=== PATIENT | female | born 1955 | race Caucasian/White ===

== ENCOUNTER → 2020-08-08 13:54 | Outpatient (CLI) | payer MEDICARE, OTHER, SELFPAY ==
--- NOTE | ~2020-08-08 | MM_ITS ---
EXAMINATION: MM screening [place] BI w ana laura HISTORY: Screening mammogram TECHNIQUE: Craniocaudal and mediolateral oblique 3-D tomosynthesis images were obtained and synthetic 2-D images were generated. CAD analysis was submitted and interpreted. COMPARISON: 07/31/2019 diagnostic right digital mammogram 07/17/2019, 07/09/2018, 07/08/2017 bilateral digital screening mammogram examinations BREAST PARENCHYMAL COMPOSITION: There are scattered areas of fibroglandular density. FINDINGS: There is no evidence of suspicious mass, calcification, or architectural distortion to sugg est malignancy in either breast. There has been no suspicious interval change. IMPRESSION: 1. No mammographic evidence of malignancy. 2. Recommend routine screening mammography in one year. BI-RADS Category 1: Negative Reviewed, dictated and finalized at location A. 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
== END ==
PROVIDERS: PCP Family Medicine; Visit Provider Nurse Practitioner
DX: Z12.31 Encounter for screening mammogram for malignant neoplasm of breast (principal)
CPT/HCPCS: 77063; 77067

== ENCOUNTER → 2020-12-14 09:32 | Outpatient (CLI) | payer MEDICARE, SELFPAY ==
--- NOTE | ~2020-12-14 | MR_ITS ---
EXAMINATION: MR lumbar spine wo [facility] EXAM DATE: 12/14/2020 10:24 INDICATION: Low back pain, left leg pain. TECHNIQUE: Multi-sequential, multiplanar MR images of the lumbar spine were obtained without contrast . Sagittal T1, T2, T2 fat saturation images. Axial T2 weighted images. Correlation was made with lumbar x-ray 07/03/2019. FINDINGS: Transitional lumbosacral segment designated L5 with rudimentary L5-S1 disc. The conus medul dayron terminates at the T12-L1 level and has normal signal intensity and morphology. There is 8mm an terolisthesis L4 on L5 without spondylolysis suspected, and there is moderate to severe disc disease at this level. Moderate disc disease at L3-4 with 3 mm retrolisthesis. L2-3 has mild to moderate disc disease with 2 mm retrolisthesis. There are no suspicious marrow signal abnormalities. Mild aneurysm al dilation of the lower abdominal aorta up to 2.8 cm. Level by level evaluation: T11-12: Disc does not extend beyond the endplate margin. Facet arthropathy: Mild. Neural foraminal stenosis: No stenosis. Central canal stenosis: No stenosis. T12-L1: Disc does not extend beyond the endplate margin. Facet arthropathy: Mild. Neural foraminal stenosis: No stenosis. Central canal stenosis: No stenosis. L1-L2: There is a mild diffuse disc bulge. Facet arthropathy: Mild to moderate. Neural foraminal stenosis: Mild left. Central canal stenosis: No stenosis. L2-L3: There is a mild to moderate diffuse disc bulge. Facet arthropathy: Mild to moderate. Neural foraminal stenosis: Mild to moderate right, mild left. Central canal stenosis: Mild. L3-L4: There is a mild to moderate diffuse disc bulge. Facet arthropathy: Moderate. Neural foraminal stenosis: Moderate right, mild to moderate left. Central canal stenosis: Mild. L4-L5: There is a moderate diffuse disc bulge. Facet arthropathy: Severe . Ligamentum flavum enlargement. Neural foraminal stenosis: Moderate bilateral. Central canal stenosis: Severe. L5-S1: Rudimentary disc. Facet arthropathy: None. Neural foraminal stenosis: No stenosis. Central canal stenosis: No stenosis. IMPRESSION: 1. Transitional lumbosacral segment designated L5. 2. Grade 2 anterolisthesis L4 on L5 with severe central canal stenosis, moderate neural foraminal st enosis. 3. Less spondylosis other levels. 4. Incidental mildly aneurysmal infrarenal abdominal aorta. Reviewed, dictated and finalized at location A. IMPRESSION: 1. Transitional lumbosacral segment designated L5. 2. Grade 2 anterolisthesis L4 on L5 with severe central canal stenosis, modera te neural foraminal stenosis. 3. Less spondylosis other levels. 4. Incidental mildly aneurysmal infrarenal abdominal aorta.
== END ==
PROVIDERS: Visit Provider Nurse Practitioner Family
DX: M47.27 Other spondylosis with radiculopathy, lumbosacral region (principal); M48.07 Spinal stenosis, lumbosacral region; I71.4 Abdominal aortic aneurysm, without rupture
CPT/HCPCS: 72148

== ENCOUNTER 2021-07-24 07:58 | Outpatient (CLI) | payer MEDICARE, SELFPAY ==
--- NOTE | ~2021-07-24 | US_ITS ---
EXAMINATION: US aorta DATE: 07/24/2021 08:33 INDICATION: Abdominal aortic aneurysm without rupture. TECHNIQUE: Grayscale, color Doppler, and pulsed Doppler images of the aorta and common iliac arteries were obtained. COMPARISON: Lumbar spine MRI 12/14/2020 FINDINGS: The aorta measures up to 2.8 cm in diameter. There is atherosclerosis of the aorta. The right common iliac artery measures 1.2 cm. The left common iliac artery measures 1.5 cm. IMPRESSION: 1. No abdominal aortic aneurysm. Reviewed, dictated and finalized at location A. 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
== END 2021-07-24 07:59 | disposition home or self-care (01) ==
PROVIDERS: Visit Provider Internal Medicine Cardiovascular Disease
DX: I71.4 Abdominal aortic aneurysm, without rupture (principal)
CPT/HCPCS: 76775

== ENCOUNTER → 2021-09-18 10:50 | Outpatient (CLI) | payer MEDICARE, SELFPAY ==
--- NOTE | ~2021-09-18 | MM_ITS ---
EXAMINATION: MM screening [place] BI w ana laura HISTORY: Screening TECHNIQUE: Craniocaudal and mediolateral oblique 3-D tomosynthesis images were obtained and synthetic 2-D images were generated. CAD analysis was submitted and interpreted. COMPARISON: Comparison to multiple prior studies sequentially, with oldest reviewed study dated 06/10. BREAST PARENCHYMAL COMPOSITION: There are scattered areas of fibroglandular density. FINDINGS: There is no evidence of suspicious mass, calcification, or architectural distortion to sugg est malignancy in either breast. There has been no suspicious interval change. IMPRESSION: 1. No mammographic evidence of malignancy. 2. Recommend routine screening mammography in one year. BI-RADS Category 1: Negative Reviewed, dictated and finalized at location A. [employer]
== END ==
PROVIDERS: PCP Family Medicine; Visit Provider Nurse Practitioner
DX: Z12.31 Encounter for screening mammogram for malignant neoplasm of breast (principal)
CPT/HCPCS: 77063; 77067

== ENCOUNTER 2022-01-15 01:00 | Day surgery (SDC) | payer MEDICARE, SELFPAY ==
[2021-12-29 09:24] VITALS: BMI 26.2
[2022-01-15 10:58] VITALS: BP 125/84; PULSE 77; RESP 18; TEMP 36.4; O2SAT 100; BMI 26.2
[2022-01-15] MEDS: LACTATED RINGERS 1,000 ML 150 ML IV CONT (11:11)
--- NOTE | 2022-01-15 11:32 | WPDANESEPPF ---
Anes - Initial Pre Proc Eval Procedure: Operation Date: 01/15/22 11:30 Proposed Procedures p Screening Colonoscopy - Cesar Hogue MD Date/Time: 01/15/22 11:32 Surgeon: Cesar Hogue MD Pre Op Diagnosis: family hx of colon ca Patient Data Age: 66 Gender: F Height: 1.6 m Weight: 67.3 kg Last Vital Signs Temp 97.5 F L 01/15/22 10:58 Pulse 77 01/15/22 10:58 Resp 18 01/15/22 10:58 BP 125/84 01/15/22 10:58 Pulse Ox 100 01/15/22 10:58 Allergies Allergy/AdvReac Type Severity Reaction Status Date / Time No Known Drug Allergies Allergy Other Verified 12/29/21 09:30 Home Medications Medication Instructions Recorded Confirmed Type melatonin 10 mg capsule 10 mg PO .QHS PRN cap 08/05/19 01/15/22 History ergocalciferol (vitamin D2) 1,250 1,250 mcg PO 2XW cap 07/19/20 01/15/22 History mcg (50,000 unit) capsule fluticasone propionate 50 1 spray NASAL BID #16 g 11/06/21 01/15/22 Rx mcg/actuation nasal spray,suspension pregabalin 75 mg capsule 75 mg PO BID #180 cap 11/10/21 01/15/22 Rx clorazepate dipotassium 7.5 mg 7.5 mg PO BID PRN #60 tablet 12/18/21 01/15/22 Rx tablet hydrocodone 5 mg-acetaminophen 325 1 tablet PO Q8H PRN #90 tablet 12/18/21 01/15/22 Rx mg tablet duloxetine 60 mg PO DAILY 12/29/21 01/15/22 History bupropion HCl 150 mg 24 hr tablet, 150 mg PO QAM #30 tablet 01/12/22 01/15/22 Rx extended release meloxicam 15 mg tablet 15 mg PO DAILY #30 tablet 01/12/22 01/15/22 Rx Patient hx anesthesia problems: none Family hx anesthesia problems: none Results Review: All pre-operative results and documents have been reviewed as part of the pre-operative evaluation. [facility] Past Medical History Medical History (Updated 11/06/21 @ 17:23 by Daly Abdalla MD) Chronic rhinitis Fibromyalgia PHIL (generalized anxiety disorder) Metal bone fixation hardware in place Osteoarthritis Primary insomnia Rotator cuff arthropathy of right shoulder Tobacco abuse Surgical History Surgical History History of inguinal hernia repair History of tonsillectomy History of total knee arthroplasty Family History Family History Mother Carcinoma of colon Sibling Family history of malignant melanoma Father Family history of malignant neoplasm of skin Other Family history of coronary artery disease Social History Social History (Updated 12/18/21 @ 11:23 by Ashley Dominique [facility]) Years smoked: 20 Smoking status: Former smoker Tobacco type: cigarettes and e-cigarettes/vaping Second hand tobacco smoke exposure: No Additional smoking assessment comments: NO CIGS NOW, VAPES Alcohol intake: current Drinks per week: 7 Alcohol use details: WINE Substance use: never Substance use type: does not use Other substance usage details: Medical Marijuana Living arrangements: with family Gender identity (if verbalized by the patient): Female Spiritual care concerns: No Agree to blood products: Yes Anes - Eval Final PreProcedure Day of Procedure 01/15/22 11:32 Patient weight: normal Heart: regular rate and rhythm Lungs: clear to auscultation Airway: Mallampati scale class II Neurological: alert and oriented Last oral intake: >/= 8 hours ASA classification: II Emergent: no Anesthetic plan: proceed Anesthesia type and monitoring: general GIVS and standard monitoring Results Review: All pre-operative results and documents have been reviewed as part of the pre-operative evaluation. Informed Consent: The patient's anesthetic plan and its attendant risks and benefits were discussed with the patient/family/POA. Questions were solicited and answers provided to the satisfaction of the patient/family/POA.
--- NOTE | 2022-01-15 11:35 | WPDGICN ---
Assessment and Plan Assessment and plan (1) Family history of colon cancer in mother: Code(s): Z80.0 - Family history of malignant neoplasm of digestive organs Status: Acute Assessment and Plan: Patient's mother has had colon cancer her brother has had colon polyps. For these reasons follow-up colonoscopy is suggested 5 year intervals. (2) Family history of colonic polyps: Code(s): Z83.71 - Family history of colonic polyps Status: Acute Assessment and Plan: Patient's brother has had multiple colon polyps for this reason as well as family history patient is encouraged to have follow-up colonoscopy at 5 year intervals. GI Consult Note Consult date/time: 01/15/22 11:35 HPI: Meghan Cook is a 66 year old female Presents for screening colonoscopy. Patient's current weight appetite bowel movements are normal. She denies abdominal pain. Her family history is significant that her mother had colon cancer. Her brother has had multiple colon polyps. Patient presents today for neoplasia screening. Her last colonoscopy 5 years ago was unremarkable. Review of Systems Review of Systems: All systems reviewed & are unremarkable except as noted in HPI and below PMFSH Past Medical History Medical History (Updated 01/15/22 @ 11:36 by Cesar Hogue MD) Chronic rhinitis Fibromyalgia PHIL (generalized anxiety disorder) Metal bone fixation hardware in place Osteoarthritis Primary insomnia Rotator cuff arthropathy of right shoulder Tobacco abuse Surgical History Surgical History History of inguinal hernia repair History of tonsillectomy History of total knee arthroplasty Family History Family History Mother Carcinoma of colon Sibling Family history of malignant melanoma Father Family history of malignant neoplasm of skin Other Family history of coronary artery disease Social History Social History (Updated 12/18/21 @ 11:23 by Ashley Dominique [facility]) Years smoked: 20 Smoking status: Former smoker Tobacco type: cigarettes and e-cigarettes/vaping Second hand tobacco smoke exposure: No Additional smoking assessment comments: NO CIGS NOW, VAPES Alcohol intake: current Drinks per week: 7 Alcohol use details: WINE Substance use: never Substance use type: does not use Other substance usage details: Medical Marijuana Living arrangements: with family Gender identity (if verbalized by the patient): Female Spiritual care concerns: No Agree to blood products: Yes Meds Home Medications and Allergies Home Medications Medication Instructions Recorded Confirmed Type melatonin 10 mg capsule 10 mg PO .QHS PRN cap 08/05/19 01/15/22 History ergocalciferol (vitamin D2) 1,250 1,250 mcg PO 2XW cap 07/19/20 01/15/22 History mcg (50,000 unit) capsule fluticasone propionate 50 1 spray NASAL BID #16 g 11/06/21 01/15/22 Rx mcg/actuation nasal spray,suspension pregabalin 75 mg capsule 75 mg PO BID #180 cap 11/10/21 01/15/22 Rx clorazepate dipotassium 7.5 mg 7.5 mg PO BID PRN #60 tablet 12/18/21 01/15/22 Rx tablet hydrocodone 5 mg-acetaminophen 325 1 tablet PO Q8H PRN #90 tablet 12/18/21 01/15/22 Rx mg tablet duloxetine 60 mg PO DAILY 12/29/21 01/15/22 History bupropion HCl 150 mg 24 hr tablet, 150 mg PO QAM #30 tablet 01/12/22 01/15/22 Rx extended release meloxicam 15 mg tablet 15 mg PO DAILY #30 tablet 01/12/22 01/15/22 Rx Allergies Allergy/AdvReac Type Severity Reaction Status Date / Time No Known Drug Allergies Allergy Other Verified 12/29/21 09:30 Vital Signs Vital Signs - 24 hr 01/15/22 10:58 Temperature 97.5 F L Pulse Rate 77 Respiratory Rate 18 Blood Pressure 125/84 Pulse Oximetry 100 Exam Narrative: Physical exam reveals patient to be alert. Vital signs stable. HEENT
--- NOTE | 2022-01-15 12:03 | SUR.OPER ---
SAYRA Riddle and SAYRA Nieves verified with Dr. Hogue that one ascending colon polyp was collected and sent to lab
[2022-01-15 12:06] VITALS: BP 86/62; PULSE 63; RESP 30; O2SAT 96
[2022-01-15 12:16] VITALS: BP 95/47; PULSE 72; RESP 18; O2SAT 100
[2022-01-15 12:26] VITALS: BP 121/82; PULSE 64; RESP 18; O2SAT 95
== END 2022-01-15 12:40 | disposition home or self-care (01) ==
PROVIDERS: PCP Family Medicine; Visit Provider Internal Medicine Gastroenterology
PROC: 0DJD8ZZ Inspection of Lower Intestinal Tract, Via Natural or Artificial Opening Endoscopic (ICD-10-PCS; CPT 45378; principal; 2022-01-15 11:30)
DX: Z12.11 Encounter for screening for malignant neoplasm of colon (principal); D12.2 Benign neoplasm of ascending colon; K57.30 Diverticulosis of large intestine without perforation or abscess without bleeding; K64.8 Other hemorrhoids; M79.7 Fibromyalgia; M19.90 Unspecified osteoarthritis, unspecified site; F51.01 Primary insomnia; F41.1 Generalized anxiety disorder; Z96.659 Presence of unspecified artificial knee joint; Z87.891 Personal history of nicotine dependence
CPT/HCPCS: 45385; 88305; J2704; J7120

== ENCOUNTER → 2022-06-08 10:09 | Outpatient (CLI) | payer MEDICARE, SELFPAY ==
--- NOTE | ~2022-06-08 | MR_ITS ---
EXAMINATION: MR lumbar spine wo con DATE: 06/08/2022 10:40 INDICATION: Spondylolisthesis, lumbar region. Low back pain. TECHNIQUE: Magnetic resonance imaging (MRI) of the lumbar spine was performed without intravenous con trast. Sequences included sagittal T2-weighted FSE, sagittal T2-weighted FS FSE, sagittal T1-weighted FSE, and axial T2-weighted FSE. COMPARISON: Lumbar spine MRI 12/14/2020, chest 2 views 03/14/2007, lumbar spine radiographs 07/03/2019 FINDINGS: There is 11 degrees levoscoliosis of lumbar spine. There are 12 pairs of ribs. L5 is a lee sitional segment. There is 7 mm anterolisthesis of L4 on L5. There is 3 mm retrolisthesis of L2 on L3 and L3 on L4. Vertebral body heights are normal. There is mildly decreased disc height at L2-L3 and severely decreased disc height at L3-L4 and L4-L5. The distal spinal cord signal intensity is normal. The conus medullaris is at T12-L1. The following disc levels are specifically discussed: L1-L2: The disc is bulging. There is moderate right and severe left facet joint osteoarthritis. There is mild bilateral neural foraminal stenosis. There is mild central canal stenosis. L2-L3: The disc is bulging and has an annular fissure. There is severe bilateral facet joint osteoart hritis. There is moderate right and mild left neural foraminal stenosis. There is mild central canal stenosis. L3-L4: The disc is bulging and has an annular fissure. There is severe bilateral facet joint osteoart hritis. There is moderate right and mild left neural foraminal stenosis. There is mild central canal stenosis. L4-L5: The disc does not extend beyond the endplate margin. There is severe bilateral facet joint ost eoarthritis. There is moderate bilateral neural foraminal stenosis. There is severe central canal leighton nosis. L5-S1: The disc does not extend beyond the endplate margin. There is moderate facet joint osteoarthri tis. There is no neural foraminal stenosis. There is no central canal stenosis. IMPRESSION: 1. Severe lumbar spondylosis, stable from 12/14/2020. Reviewed, dictated and finalized at location A.
== END ==
PROVIDERS: PCP Family Medicine; Visit Provider Neurological Surgery
DX: M43.16 Spondylolisthesis, lumbar region (principal)
CPT/HCPCS: 72148

== ENCOUNTER → 2022-10-15 10:47 | Outpatient (CLI) | payer MEDICARE, SELFPAY ==
--- NOTE | ~2022-10-15 | DEXA_ITS ---
Bone Density Report Name: KOMAL KING Age: 66 Sex: Female Ethnicity: White Date of : 1955 Indication: postmenopausal; screening for osteoporosis; height loss; Referring Provider: HAYDEN, FRANK Study: Bone densitometry was performed. Exam Date: October 15, 2022 Accession number: [id number] Bone Density: Region BMD T-score Z-score Classification AP Spine (L1, L2, L3) 1.091 0.7 2.6 Normal Femoral Neck (Left) 0.779 -0.6 1.0 Normal Total Hip (Left) 0.903 -0.3 1.1 Normal Femoral Neck (Right) 0.808 -0.4 1.3 Normal Total Hip (Right) 0.963 0.2 1.6 Normal Total Hip Mean 0.933 -0.1 1.4 Normal World Health Organization criteria for BMD impression classify patients as: Normal (T-score at or above -1.0), Osteopenia (T-score between -1.0 and -2.5), or Osteoporosis (T-score at or below -2.5). 10-year Fracture Risk: FRAX not reported because: All T-scores for Spine Total, Hip Total, Femoral Neck at or above -1.0 Previous Exams: Region Exam Age BMD T-score BMD Change BMD Change Date g/cm2 vs Baseline vs Previous AP Spine(L1, L2, L3) 10/15/2022 66 1.091 0.7 0.000 0.009 07/17/2019 63 1.082 0.6 -0.009 0.059* 07/04/2015 59 1.024 0.1 -0.068* -0.092* 03/08/2011 55 1.116 0.9 0.024* 0.086* 10/17/2007 51 1.030 0.1 -0.062* -0.062* 02/26/2007 51 1.091 0.7 Total Hip(Left) 10/15/2022 66 0.903 -0.3 -0.173* 0.011 07/17/2019 63 0.892 -0.4 -0.185* -0.107* 07/04/2015 59 0.999 0.5 -0.077* 0.004 03/08/2011 55 0.995 0.4 -0.081* -0.081* 10/17/2007 51 1.076 1.1 Total Hip(Right) 10/15/2022 66 0.963 0.2 -0.102* 0.020 07/17/2019 63 0.943 0.0 -0.122* -0.070* 07/04/2015 59 1.013 0.6 -0.052* -0.030* 03/08/2011 55 1.043 0.8 -0.022 -0.022 10/17/2007 51 1.065 1.0 *Denotes significance at 95% confidence level, LSC for AP Spine = 0.022 g/cm2, LSC for Total Hip = 0.027 g/cm2 Clinical Information Provided by Patient: Smokes Has used the following medications: Vitamin D Patient maximum height was 64 Menopause Age: 50 No regular weight bearing exercise Does not regularly consume dairy products Drinks caffeinated beverages Onset of menses at age 12 Number of children 3
--- NOTE | ~2022-10-15 | MM_ITS ---
EXAMINATION: MM screening [place] BI w ana laura HISTORY: Screening mammogram TECHNIQUE: Craniocaudal and mediolateral oblique 3-D tomosynthesis images were obtained and synthetic 2-D images were generated. CAD analysis was submitted and interpreted. COMPARISON: 09/18/2021, 08/08/2020, 07/31/2019 bilateral screening mammogram examinations BREAST PARENCHYMAL COMPOSITION: There are scattered areas of fibroglandular density. FINDINGS: There is no evidence of suspicious mass, calcification, or architectural distortion to sugg est malignancy in either breast. There has been no suspicious interval change. IMPRESSION: 1. No mammographic evidence of malignancy. 2. Recommend routine screening mammography in one year. BI-RADS Category 1: Negative Reviewed, dictated and finalized at location A. 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
== END ==
PROVIDERS: PCP Family Medicine; Visit Provider Nurse Practitioner
DX: Z12.31 Encounter for screening mammogram for malignant neoplasm of breast (principal); Z78.0 Asymptomatic menopausal state
CPT/HCPCS: 77063; 77067; 77080

== ENCOUNTER 2022-11-14 11:46 | Outpatient (CLI) | payer MEDICARE, SELFPAY ==
--- NOTE | 2022-11-14 12:05 | ECG_ITS ---
Measurements Intervals [place] Rate: 70 P: 52 NV: 152 QRS: 50 QRSD: 84 T: 48 QT: 391 QTc: 425 Interpretive Statements SINUS RHYTHM BASELINE ARTIFACT- I, II, III NORMAL ECG NO PREVIOUS ECG AVAILABLE FOR COMPARISON Electronically Signed On 11-14-2022 12:43:09 LUMBER INSPECTOR by Dewey Wilburn D.O.
[2022-11-14 12:13] LABS: Basophils Percent Auto 0.7 % (0.2-1.2); Eosinophils Percent Auto 0.7 % (0-4.4); Hemoglobin 13.1 g/dL (12.0-15.0); Immature Granulocyte Absolute 0.02 K/mm3 (0.00-0.031); Immature Granulocyte Percent A 0.4 % (0-0.5); Lymphocytes Absolute Auto 1.29 K/mm3 (0.9-3.2); Lymphocytes Percent Auto 28.5 % (18.3-44.2); Mean Corpuscular HGB Conc 32.8 g/dl (32-36); Mean Corpuscular Hemoglobin 31.7 pg (26-34); Mean Corpuscular Volume 96.9 fl (80-100); Mean Platelet Volume 9.6 fl (7.4-10.4); Monocytes Absolute Auto 0.3 K/mm3 (0.1-0.6); Monocytes Percent Auto 7.5 % (2.6-8.5); Neutrophils Absolute Auto 2.8 K/mm3 (1.3-6.7); Neutrophils Percent Auto 62.2 % (45.5-73.1); Platelet Count Result 184 k/mm3 (150-375); Red Blood Count 4.13 M/mm3 (4.2-5.4); Red Cell Distribution Width 13.3 % (11.5-14.5); White Blood Count 4.5 K/mm3 (4.5-10.0)
[2022-11-14 12:26] LABS: Alanine Aminotransferase 22 U/L (6-35); Albumin Level 4.6 g/dL (3.5-5.1); Alkaline Phosphatase 80 U/L (38-126); Anion Gap 5 mmol/L (8-16); Aspartate Amino Transferase 28 U/L (14-36); Bilirubin,Total 0.6 mg/dL (0.2-1.3); Blood Urea Nitrogen 9 mg/dL (7-17); Calcium 9.3 mg/dL (8.4-10.2); Carbon Dioxide 28 mmol/L (22-30); Chloride 102 mmol/L (98-107); Estimated Glomerular Filt Rate > 60; Glucose 112 mg/dL (65-110); Potassium 4.3 mmol/L (3.4-5.0); Sodium 135 mmol/L (137-145)
[2022-11-14 12:27] LABS: Prothrombin Time 12.9 Seconds (11.1-14.7)
[2022-11-14 12:28] LABS: Partial Thromboplastin Time 25.7 SECONDS (22.3-36.8)
== END 2022-11-14 11:47 | disposition home or self-care (01) ==
PROVIDERS: PCP Family Medicine; Visit Provider Neurological Surgery
DX: M54.42 Lumbago with sciatica, left side (principal); E78.2 Mixed hyperlipidemia; G89.29 Other chronic pain; Z79.01 Long term (current) use of anticoagulants
CPT/HCPCS: 36415; 80053; 85025; 85610; 85730; 93005

== ENCOUNTER 2022-11-21 13:40 | Inpatient (IN) | payer MEDICARE, SELFPAY ==
[2022-11-15 12:33] VITALS: BMI 26.9
--- NOTE | 2022-11-15 13:03 | PC.NURSE ---
Report to the Outpatient Waiting Room, entrance under the green pavilion located off [facility], at time _6:00AM on date _11/21/22 . Planned Procedure Time: __7:30AM . Time changes happen often and if your time is changed the preop area will call you the afternoon before. - You and your visitor will be asked to self-screen and do not enter if you have any COVID symptoms. - Only one visitor is requested with a max of two and NO children visitors are allowed at this time. - The patient visitor may be requested to leave or wait in car when not with patient due to distancing restrictions. - A mask is optional within the hospital at this time. Patients may have clear liquids (water, carbonated beverages, clear teas, apple juice) until 3 hours prior to surgery with a maximum of 20 ounces. - No food from midnight until time of surgery Take the following medications with a SIP of water the morning of surgery: ___BUPROPION, PREGABALIN, FLONASE, CLORAZEPATE NEEDED, HYDROCODONE NEEDED DO NOT STOP ANY OF YOUR OTHER PRESCRIPTION MEDICATIONS PRIOR TO SURGERY ?EXCEPT THE FOLLOWING Medications to discontinue per physician ____HOLD ALL VITAMINS/SUPPLEMENTS 3 DAYS PRE-OP Date to take last dose 11/17/22 Please no make-up, nail pashto, hairspray, perfume, deodorant, or body powder the day of surgery. No jewelry (including any body piercings) or valuables the day of surgery, leave them at home. Please take a shower or bath the night before, or the morning of, surgery with an antibacterial soap. Wear comfortable, loose fitting clothing. Children are encouraged to wear pajamas. - Jewelry must be removed prior to entering the operating room. Rings and piercings that are not removed may be cut off. - The hospital will not accept responsibility for valuables. - Please leave all valuables, including medications, at home the day of surgery. If you are going home after surgery, a licensed diesel pile driver operator must drive you home. - NO public transportation without another adult if you receive anesthesia. - We recommend that an adult stay with you for 24 hours following discharge. - We also recommend that you do not drive, make important decision, drink alcoholic beverages, or take any drugs that were not prescribed by your health care provider for at least 24 hours after your discharge time. Follow any additional instructions given to you from your surgeon. If you or anyone in your household have experienced Covid symptoms in the past week, please notify your surgeon or the nurse liaison at the phone number below for possible testing. Telephone instructions given to __PATIENT and asked if any additional questions and then verbalized understanding. Patient advised to call surgeon office or pre surgery nurse liaison [phone] if any additional questions.
[2022-11-21] VITALS (16 sets, daily range): BP systolic 105–135; BP diastolic 58–88; PULSE 69–82; RESP 13–20; TEMP 36–37.6; O2SAT 94–100
--- NOTE | ~2022-11-21 | XR_ITS ---
EXAMINATION: XR fluoroscopy no charge DATE: 11/21/2022 13:06 INDICATION: Lumbar decompression and anterior spinal fusion for lumbar radiculopathy. TECHNIQUE: 6 fluoroscopic images of the lumbar spine were obtained during procedure performed by Dr. Shearer. Radiologist was not present for the imaging or procedure. The amount of fluoroscopy time use d during this procedure was 0.2 minutes. COMPARISON: Lumbar spine MR dated 06/08/2022 FINDINGS: Again seen is grade 1 anterolisthesis of L4 on a transitional partially sacralized L5 segment. There is moderate disc height loss at L4-L5. Subsequent images demonstrate an L4 laminectomy and combined i nstrumented L4-L5 anterior and posterior spinal fusion with interbody bone graft cage and bilateral v ertical kathy and pedicle screw fixation. No acute fractures identified. IMPRESSION: 1. Fluoroscopy utilized during L4 laminectomy and combined instrumented L4-L5 anterior and posterior spinal fusion. See procedure note for further detail. Reviewed, dictated and finalized at location B. IMPRESSION: 1. Fluoroscopy utilized during L4 laminectomy and combined instrumented L4-L5 a nterior and posterior spinal fusion. See procedure note for further detail.
[2022-11-21] MEDS: LACTATED RINGERS 1,000 ML 30 ML IV CONT ×2 (07:30→13:36)
--- NOTE | 2022-11-21 08:01 | PM.IMHP ---
H&P: HPI History of Present Illness Date/Time: 11/21/22 08:01 Chief Complaint: back, leg pain Narrative: Ms. Cook is a 66-year-old female with history of arthritis with a 2+ year history of back and left radicular leg pain into the foot. She occasionally has pain down the backs of both legs. Symptoms worsen with weight bearing and with coughing/sneezing. She has failed PT/OT, medical management, and DENISSE. She is ready to proceed with surgery today. Please see my note scanned into the chart on 09/26 for more details. Review of Systems Review of Systems: All systems reviewed & are unremarkable except as noted in HPI and below PMFSH Past Medical History Medical History AAA (abdominal aortic aneurysm) Monitored by cardio Chronic cough Chronic rhinitis Fibromyalgia PHIL (generalized anxiety disorder) Metal bone fixation hardware in place Osteoarthritis Primary insomnia Rotator cuff arthropathy of right shoulder Tobacco abuse Surgical History Surgical History History of inguinal hernia repair History of tonsillectomy History of total knee arthroplasty Family History Family History Mother Carcinoma of colon Sibling Family history of malignant melanoma Father Family history of malignant neoplasm of skin Other Family history of coronary artery disease Social History Social History (Updated 10/16/22 @ 15:39 by Lee Ann Tineo [facility]) Smoking packs per day: 0.5 Smoking cigarettes per day: 10.0 Years smoked: 20 Smoking pack-years: 10.00 Smoking status: Current every day smoker Tobacco type: cigarettes and e-cigarettes/vaping Second hand tobacco smoke exposure: No Additional smoking assessment comments: VAPING SEVERAL TIMES/DAY CURRENTLY, CHEW NICOTINE GUMS FREQUENTLY Alcohol intake: current Drinks per week: 2 Alcohol use details: WINE Substance use: never Substance use type: does not use Other substance usage details: Medical Marijuana Lack of Transportation: No Lack of Food: Never True Current Housing: I Have Housing Concerned About Future Housing: No Difficulty Paying Gas/Electric Bills: No Difficulty Paying for Meds: No Currently Unemployed: No Education: High School Diploma/GED Difficulty w/ Childcare or Family Care: No Living arrangements: with family Additional living arrangements comments: [place] Occupation/Education: retired Gender identity (if verbalized by the patient): Female Sexual Orientation (if Verbalized by the Patient): Straight or Heterosexual Spiritual care concerns: No Agree to blood products: Yes Meds Home Medications and Allergies Home Medications Medication Instructions Recorded Confirmed Type melatonin 10 mg capsule 10 mg PO .QHS PRN sleep 08/05/19 11/21/22 History ergocalciferol (vitamin D2) 1,250 1,250 mcg PO [id number] 07/19/20 11/21/22 History mcg (50,000 unit) capsule bupropion HCl 300 mg 24 hr tablet, 300 mg PO QAM #90 tabs 06/20/22 11/21/22 Rx extended release (Wellbutrin XL) rosuvastatin 20 mg tablet 20 mg PO DAILY 06/20/22 11/21/22 History diphenhydramine HCl 25 mg capsule 50 mg PO QHS PRN sleep 30 days #60 06/27/22 11/21/22 Rx (Banophen) caps pregabalin 75 mg capsule (Lyrica) 75 mg PO BID #180 caps 08/09/22 11/21/22 Rx hydrocodone 5 mg-acetaminophen 325 1 tablet PO Q8H PRN pain #90 tabs 08/28/22 11/21/22 Rx mg tablet methocarbamol 750 mg tablet 750 mg PO QHS 10/16/22 11/21/22 History fluticasone propionate 50 1 spray intranasal BID #16 grams 11/03/22 11/21/22 Rx mcg/actuation nasal spray,suspension (Allergy Relief (fluticasone)) clorazepate dipotassium 7.5 mg 7.5 mg PO BID PRN anxiety #60 tabs 11/14/22 11/21/22 Rx tablet duloxetine 60 mg capsule,delayed 60 mg PO QPM 11/15/22 11/21/22 History release multivit
--- NOTE | 2022-11-21 08:09 | WPDANESEPPF ---
Anes - Initial Pre Proc Eval Procedure: Operation Date: 11/21/22 08:15 Proposed Procedures p L4-5 Decompressive Posterior Lumbar Interbody Fusion - Kaycee Shearer MD Date/Time: 11/21/22 08:09 Surgeon: Kaycee Shearer MD Pre Op Diagnosis: lumbar spondylolisthesis,radiculopathy Patient Data Age: 66 Gender: F Height: 1.6 m Weight: 69.8 kg Last Vital Signs Temp 36.0 C L 11/21/22 06:28 Pulse 69 11/21/22 06:28 Resp 14 11/21/22 06:28 BP 128/74 11/21/22 06:28 Pulse Ox 98 11/21/22 06:28 O2 Del Method Room Air 11/21/22 06:28 Allergies Allergy/AdvReac Type Severity Reaction Status Date / Time No Known Allergies Allergy Verified 11/21/22 07:03 Home Medications Medication Instructions Recorded Confirmed Type melatonin 10 mg capsule 10 mg PO .QHS PRN sleep 08/05/19 11/21/22 History ergocalciferol (vitamin D2) 1,250 1,250 mcg PO [id number] 07/19/20 11/21/22 History mcg (50,000 unit) capsule bupropion HCl 300 mg 24 hr tablet, 300 mg PO QAM #90 tabs 06/20/22 11/21/22 Rx extended release (Wellbutrin XL) rosuvastatin 20 mg tablet 20 mg PO DAILY 06/20/22 11/21/22 History diphenhydramine HCl 25 mg capsule 50 mg PO QHS PRN sleep 30 days #60 06/27/22 11/21/22 Rx (Banophen) caps pregabalin 75 mg capsule (Lyrica) 75 mg PO BID #180 caps 08/09/22 11/21/22 Rx hydrocodone 5 mg-acetaminophen 325 1 tablet PO Q8H PRN pain #90 tabs 08/28/22 11/21/22 Rx mg tablet methocarbamol 750 mg tablet 750 mg PO QHS 10/16/22 11/21/22 History fluticasone propionate 50 1 spray intranasal BID #16 grams 11/03/22 11/21/22 Rx mcg/actuation nasal spray,suspension (Allergy Relief (fluticasone)) clorazepate dipotassium 7.5 mg 7.5 mg PO BID PRN anxiety #60 tabs 11/14/22 11/21/22 Rx tablet duloxetine 60 mg capsule,delayed 60 mg PO QPM 11/15/22 11/21/22 History release multivitamin 1 tablet PO DAILY 11/15/22 11/21/22 History vit C 250 mg-vit E 90 mg-zinc 40 2 tablet PO DAILY 11/15/22 11/21/22 History mg-copper 1 [id number] capsule (PreserVision AREDS-2) Patient hx anesthesia problems: none Family hx anesthesia problems: none Results Review: All pre-operative results and documents have been reviewed as part of the pre-operative evaluation. [facility] Past Medical History Medical History AAA (abdominal aortic aneurysm) Monitored by cardio Chronic cough Chronic rhinitis Fibromyalgia PHIL (generalized anxiety disorder) Metal bone fixation hardware in place Osteoarthritis Primary insomnia Rotator cuff arthropathy of right shoulder Tobacco abuse Surgical History Surgical History History of inguinal hernia repair History of tonsillectomy History of total knee arthroplasty Family History Family History Mother Carcinoma of colon Sibling Family history of malignant melanoma Father Family history of malignant neoplasm of skin Other Family history of coronary artery disease Social History Social History Smoking packs per day: 0.5 Smoking cigarettes per day: 10.0 Years smoked: 20 Smoking pack-years: 10.00 Smoking status: Current every day smoker Tobacco type: cigarettes and e-cigarettes/vaping Second hand tobacco smoke exposure: No Additional smoking assessment comments: VAPING SEVERAL TIMES/DAY CURRENTLY, CHEW NICOTINE GUMS FREQUENTLY Alcohol intake: current Drinks per week: 2 Alcohol use details: WINE Substance use: never Substance use type: does not use Other substance usage details: Medical Marijuana Lack of Transportation: No Lack of Food: Never True Current Housing: I Have Housing Concerned About Future Housing: No Difficulty Paying Gas/Electric Bills: No Difficulty Paying for Meds: No Currently Unemploy
[2022-11-21] MEDS: ceFAZolin 2 GM/D5W 50 ML 2 GM/50 ML BAG IVPB (08:20)
--- NOTE | 2022-11-21 08:31 | WPDHPUPDATE1 ---
History and Physical Update Update Date/Time: 11/21/22 08:31 History and Physical has been reviewed, including an updated exam of the patient. There are NO changes in the patient's condition. Risks, benefits, and alternatives have been discussed and questions answered. Patient agrees to proceed with procedure.
[2022-11-21] MEDS: BUPIVACAINE/EPINEPHRINE 0.25% 50 ML VIAL 20 ML INFILTRATE (09:18)
[2022-11-21] MEDS: ceFAZolin SODIUM 1 GM VIAL 2 GM IV PUSH (12:56)
--- NOTE | 2022-11-21 13:33 | SUR.OPER ---
200 clear yellow urine drained from archer prior to leaving operating room
--- NOTE | 2022-11-21 13:38 | PM.OP ---
Procedure Note - Brief Procedure Note - Brief Date of procedure: 11/21/22 Pre-op diagnosis: lumbar spondylolisthesis,radiculopathy Post-op diagnosis: Same Procedure performed: L4-5 posterior lumbar interbody fusion Description of procedure: Bilateral interbody cages placed, 9mm on left, 8mm on right. Screws placed at L4-5. No complications Anesthesia: GETA Surgeon: Kaycee Shearer MD Ash Conveyor Operator: Manan Robles MD Estimated blood loss (mL): 200 Drains: Yes Packing: No Pathology: None sent Complications: No immediate complications Condition: Stable Disposition: Floor
[2022-11-21] MEDS: fentaNYL CITRATE INJ (*CRX) 100 MCG/2 ML VIAL 25 MCG IV PUSH ×2 (14:57→15:02)
--- NOTE | 2022-11-21 15:45 | PC.NURSE ---
This patient, Meghan Cook, was admitted to Medical Room 241-. Patient/family oriented to hospital policies and general routines including ID bracelet, bed and alarms, visiting hours, pain management, procedures, bathroom and other care routines, personal items, smoking policy, room service/diet, and visiting hours. Information on how to activate the Rapid Response Team has been discussed. Patient/Family are encouraged to report perceived risks to care and to ask questions if they do not understand what they are told or what they should do.
--- NOTE | 2022-11-21 16:43 | W.PM.PROC2 ---
Procedure Note - Detailed Date of Procedure 11/21/22 Pre-op Diagnosis lumbar spondylolisthesis,radiculopathy Post-op Diagnosis Same Procedure Performed 1. L4 laminectomy, foraminotomy, and medial facetectomy for decompression 2. Pedicle screw instrumentation at L4 and L5 3. L4-5 posterolateral?and posterior interbody?arthrodesis with autograft 4. Use and interpretation of C-arm fluoroscopy Surgeon Kaycee Shearer MD Bull Riveter Manan Robles MD Anesthesia General Indications Ms. Cook is a 66-year-old female with history of back and left radicular leg pain which has been present for more than 2 years. She has exhausted conservative measures including medications, physical therapy, pain management. Imaging revealed a grade 1 spondylolisthesis of L4 with significant central and lateral recess stenosis. Surgical treatment was recommended in the form of L4-5 decompression and interbody fusion. The risks, benefits, alternatives as well as reasonable expected outcomes were explained to the patient and consent was given to proceed. Risks include but are not limited to bleeding, infection, meningitis, nonunion, weakness, paralysis, stroke, need for future procedures, CSF leak, and . Description of Procedure The patient was brought to the operating room?where endotracheal anesthesia was induced?and a?archer catheter?was placed. The patient was turned prone onto the Sherman table.?The patient was secured, SCDs were placed, and all pressure points were padded.?The C-arm was used to plan the incision.?The planned surgical site was prepped and draped in usual sterile fashion. Time out was conducted, and local anesthesia was injected. ? A 10-blade scalpel was used to make the incision.?The soft tissue was dissected to the spinous processes with the bovie. The subperiosteal exposure of the posterior elements was performed with the bovie and periosteal elevator out laterally to the?transverse processes. Self-retaining retractors were placed. The L4-5 level was confirmed with C-arm, as were the transverse processes of L4 and L5. ? We first focused our attention on the decompression. The interlaminar space at L4-5 was distracted. The facet joints bilaterally were removed partially with a Leksell. A curette was used to separate the ligamentum from the bone which was then further removed with Kerrison rongeurs. The lamina, pars, and inferior articular process were removed in this manner bilaterally. Next, a curette was used to separate the ligamentum and dura from the superior articular processes bilaterally which were then removed with a Kerrison until the level of the L5 pedicle was encountered on either side. The ligamentum was from the dura and removed. The dura was retracted medially exposing the disc space, and the posterior longitudinal ligament and epidural vessels were coagulated with bipolar. The disc space was incised on the left side, and terrell were used in increasing sizes to remove disc material from the disc space. After the 8mm shaver was used, the disc was removed with a combination of pituitary and currettes. A 8mm interbody trial was placed and visualized with xray. This was left in place while we turned to the right side where the disc was incised and removed in a similar manner. An 8 mm interbody trial was placed at this level and was felt to be the appropriate size. Disc space was packed with autograft, and an 8 mm cage was packed with autograft and placed within the disc space. At this point, the interbody trial on the left side felt loose, and so this was removed and replaced with a 9 mm trial. this was felt to be the appropriate size, so this is removed. The disc space was packed on the sides with autograft as well, and a 9 mm interbody cage was packed with autograft and was placed. We turned our attention to the pedicle screw placement. The high-speed drill was used to create a barge pilot hole on the right side at L4. A pedicl
[2022-11-21] MEDS: SODIUM CHLORIDE 0.9% IV 1,000 ML 100 ML IV CONT (16:49)
[2022-11-21] MEDS: ceFAZolin 1 GM/NS 50 ML 1 GM/50 ML BAG IVPB ×2 (16:51→23:53)
[2022-11-21] MEDS: oxyCODONE HCL (*CRX) 5 MG TAB IR 10 MG PO (19:52)
[2022-11-21] MEDS: oxyCODONE HCL (*CRX) 5 MG TAB IR PO (23:55)
[2022-11-22] VITALS (8 sets, daily range): BP systolic 92–127; BP diastolic 46–79; PULSE 71–95; RESP 17–20; TEMP 36.8–37.7; O2SAT 91–98
[2022-11-22] MEDS: SODIUM CHLORIDE 0.9% IV 1,000 ML 100 ML IV CONT ×2 (04:29→16:34)
[2022-11-22] MEDS: oxyCODONE HCL (*CRX) 5 MG TAB IR 10 MG PO ×3 (04:30→21:04)
[2022-11-22] MEDS: ceFAZolin 1 GM/NS 50 ML 1 GM/50 ML BAG IVPB (08:48)
[2022-11-22] MEDS: DOCUSATE SODIUM 100 MG CAPSULE PO ×2 (08:48→20:25)
--- NOTE | 2022-11-22 10:58 | WPDANESPN ---
Anes - Prog Note Post-Op Date/Time: 11/22/22 10:00 Cardiovascular status: normal Respiratory status: normal (pt on nasal cannula. instructed on incentive spirometer. return demonstration to verify understanding) Airway patency: baseline Mental status: baseline Post-Op hydration status: normal Vital Signs: Last Vital Signs Temp 99.1 F 11/22/22 08:10 Pulse 82 11/22/22 08:57 Resp 17 11/22/22 08:57 BP 99/66 L 11/22/22 08:10 Pulse Ox 93 11/22/22 08:57 O2 Del Method Nasal Cannula 11/22/22 08:57 O2 Flow Rate 1 11/22/22 08:57 Pain Score (VAS): 4 I/O: Intake & Output 11/21/22 11/22/22 11/22/22 23:59 07:59 15:59 Intake Total 150 1340 290 Output Total 300 90 Balance -150 1250 290 Post-procedural complaints: none Patient Feedback: Patient satisfied with anesthetic care.
--- NOTE | 2022-11-22 12:45 | WPDNEUROSGPN ---
Progress Note: A&P Assessment and Plan (1) Spondylolisthesis, lumbar region: Code(s): M43.16 - Spondylolisthesis, lumbar region Status: Acute (2) Lumbar radiculopathy: Code(s): M54.16 - Radiculopathy, lumbar region Status: Acute (3) Status post lumbar spinal fusion: Code(s): Z98.1 - Arthrodesis status Status: Acute Plan Ms. Cook is a 66-year-old female with history of left lumbar radiculopathy who underwent L4-5 PLIF on 11/21. She is doing well overall with expected post-surgical pain. I have encouraged her to use IS hourly in order to wean off the oxygen. I have asked her to be up in a chair later today. I will schedule her Tylenol to see if this helps with pain control. I removed the hemovac drain today. I think she would benefit from one more night in the hospital and can likely go home tomorrow. Plan: -Hemovac drain removed -Out of bed to chair, mobilize -Schedule Tylenol -Anticipate discharge home tomorrow Subjective Date/time seen: 11/22/22 12:45 Interval history: Overall complains of being sore in her back with some pain in the anterior thighs today. Denies radicular leg pain. Medication is helping when she gets it. Did ambulate with therapy using a walker without significant difficulty. Has been voiding independently. Exam Narrative: AOx4 Nasal cannula in place Full strength in lower extremities Sensation slightly decreased to light touch in medial lower left leg Dressing with small amount of serosanguinous drainge Objective Data Vital Signs Vital Signs: Vital Signs - 24 hr 11/21/22 13:36 11/21/22 13:50 11/21/22 14:05 Temperature 97.7 F Pulse Rate 82 74 79 Respiratory Rate 14 14 14 Blood Pressure 113/63 115/75 105/70 Pulse Oximetry 99 99 95 Oxygen Delivery Simple Face Mask Simple Face Mask Room Air Oxygen Flow Rate 8 8 11/21/22 14:20 11/21/22 14:35 11/21/22 14:50 Temperature Pulse Rate 76 71 71 Respiratory Rate 15 13 14 Blood Pressure 121/76 120/83 116/80 Pulse Oximetry 96 96 94 Oxygen Delivery Room Air Room Air Room Air Oxygen Flow Rate 11/21/22 15:05 11/21/22 15:20 11/21/22 15:30 Temperature 97.4 F L Pulse Rate 72 76 69 Respiratory Rate 16 16 15 Blood Pressure 111/75 117/83 135/88 Pulse Oximetry 100 98 100 Oxygen Delivery Room Air Nasal Cannula Nasal Cannula Oxygen Flow Rate 2 2 11/21/22 15:45 11/21/22 15:45 11/21/22 16:00 Temperature 97.8 F 98.6 F Pulse Rate 81 73 Respiratory Rate 18 18 Blood Pressure 122/85 118/69 Pulse Oximetry 96 100 99 Oxygen Delivery Nasal Cannula Oxygen Flow Rate 1 11/21/22 16:39 11/21/22 17:30 11/21/22 19:34 Temperature 98.2 F 97.5 F L 99.7 F H Pulse Rate 78 79 82 Respiratory Rate 18 18 20 Blood Pressure 123/71 122/68 114/58 L Pulse Oximetry 95 97 96 Oxygen Delivery Oxygen Flow Rate 11/21/22 20:00 11/22/22 00:21 11/22/22 04:13 Temperature 98.2 F 98.8 F Pulse Rate 86 88 Respiratory Rate 20 20 Blood Pressure 103/57 L 92/46 L Pulse Oximetry 96 95 91 Oxygen Delivery Nasal Cannula Oxygen Flow Rate 1 11/22/22 08:10 11/22/22 08:57 11/22/22 08:50 Temperature 99.1 F Pulse Rate 82 82 Respiratory Rate 17 17 Blood Pressure 99/66 L Pulse Oximetry 93 93 Oxygen Delivery Nasal Cannula Nasal Cannula Oxygen Flow Rate 1 1 Intake/Output Intake/Output: Intake & Output 11/19/22 11/20/22 11/21/22 11/22/22 23:59 23:59 23:59 23:59 Intake Total 400 1630 Output Total 475 90 Balance -75 1540 Meds/Results Medications: Active Medications Generic Name Dose Route Start Last Admin Trade Name Freq PRN Reason Stop Dose Admin Acetaminophen 1,000 mg 11/21/22 13:39 Acetaminophen 500 Mg Tablet PO Q6H PRN Mild Pain (1-3) Al Hydrox/Mg Hydrox/Simethicone 20 ml 11/21/22 13:39 Mag Hydrox/Al Hydrox/Simeth 30 Ml Udc PO Q4H PRN Indigestion/Heartburn Bisacodyl 10 mg 11/21/22 13:39 Bisacodyl 10 Mg Suppository RECTAL
[2022-11-22] MEDS: ACETAMINOPHEN 500 MG TABLET 1000 MG PO ×2 (13:10→19:21)
--- NOTE | 2022-11-22 14:18 | PC.NURSE ---
On 11/22/22, the student, [Venkat Meier], provided care and completed [facility] documentation on this patient. I have reviewed the student's documentation and agree with the findings.
[2022-11-23] MEDS: ACETAMINOPHEN 500 MG TABLET 1000 MG PO ×2 (00:23→06:22)
[2022-11-23 02:58] VITALS: BP 114/55; PULSE 81; RESP 20; TEMP 36.3; O2SAT 94
[2022-11-23] MEDS: DOCUSATE SODIUM 100 MG CAPSULE PO (08:37)
[2022-11-23] MEDS: oxyCODONE HCL (*CRX) 5 MG TAB IR PO (08:43)
[2022-11-23] MEDS: polyethylene glycoL 3350 17 GM POWD.PACK PO (09:07)
[2022-11-23] MEDS: CYCLOBENZAPRINE HCL 10 MG TABLET PO (10:41)
--- NOTE | 2022-12-06 16:44 | PM.DS ---
DS: Admitting Diagnosis Discharge Date 11/23/22 Admitting Diagnosis Lumbar spondylolisthesis with radiculopathy DS: Discharge Diagnosis Discharge Diagnosis (1) Status post lumbar spinal fusion: Code(s): Z98.1 - Arthrodesis status Status: Acute (2) Spondylolisthesis, lumbar region: Code(s): M43.16 - Spondylolisthesis, lumbar region Status: Acute (3) Lumbar radiculopathy: Code(s): M54.16 - Radiculopathy, lumbar region Status: Acute Plan Ms. Cook is a 66-year-old female with history of left lumbar radiculopathy who underwent L4-5 PLIF on 11/21. She is doing well overall with expected post-surgical pain. She will discharge home on 11/23 and will return to clinic in 2 weeks for suture removal DS: Summary Hospital Course Hospital Course: Ms. Cook underwent L4-5 PLIF on November 21. Please see the operative note for more details. She was transferred to the floor after surgery. Hemovac drain was removed on POD1. She was working with physical therapy who cleared her for discharge home with a walker. She was tolerating PO, and her pain was controlled with medication. She was determined ready for discharge home on POD2. Status at Discharge Cognitive/behavioral status at discharge: Baseline Functional status at discharge: uses cane/walker Overall status at discharge: patient is progressing back to baseline Time Spent with Patient Time attestation: Total time spent providing and/or coordinating discharge services: Specific discharge activities: No lifting more than 10-15lbs No bending/twisting No submerging incision under water Exam Narrative: AOx4 Full strength in lower extremities Sensation slightly decreased to light touch in medial lower left leg Dressing with small amount of serosanguinous drainge Discharge Plan Discharge Attending physician on discharge: Kaycee Shearer Consulting providers: Jose A Lazaro Discharging Clinician: Kaycee Shearer Patient Disposition: Home, Self-Care Activity: may shower and other - see discharge instructions Diet: regular Wound Care Instructions: follow printed instructions and incision open to air Discharge Instructions: INSTRUCTIONS AFTER YOUR LUMBAR FUSION ? Your incision is closed with sutures. These will be removed at your first post-operative appointment. You should have a follow-up appointment scheduled already, but please call the office if you need to verify that appointment. ? You may shower and get your incision wet with soap and water starting on post-operative day 2. Do not submerge the incision under water (like in a bathtub or swimming pool) for 6 weeks after surgery. Never apply ointments or lotions to the incision. ? The incision should be checked daily. Notify the office if there is drainage, redness, or if you have fever with a temperature of over 101 degrees. ? You are encouraged to walk as much as comfortable, with assistance as needed. For example, it may be beneficial to walk short distances hourly during the waking hours and gradually increase walking during your recovery period. Fatigue can be common. ? Avoid any bending, heavy lifting, or twisting movements. ? You have an ten-pound lift restriction until further advised by your physician (a gallon of milk weighs eight pounds). ? Make frequent position changes, avoiding long periods of sitting. Try not to sit more than 60 minutes at a time. ? No housework, especially vacuuming, making beds, or doing laundry until seen in the office. ? You may walk stairs carefully. ? Minimize long car rides for the first two weeks. You may resume driving when you feel comfortable; however, you may not drive if still taking narcotic pain medications. ? You should start with Tylenol 1000mg every 6 hours for pain first. If the Tylenol is not effective, you may then take oxycodone. ? The physician may order pain medication and/or muscle relaxers. As time goes by, you s
== END 2022-11-23 12:30 | disposition home or self-care (01) | DRG 455 ==
LOC: ANH2MED 15:42
PROVIDERS: Admitting Provider Neurological Surgery; PCP Family Medicine; Visit Provider Neurological Surgery
PROC: (CPT 22612; principal; 2022-11-21 08:15)
DX: M43.16 Spondylolisthesis, lumbar region (principal); M48.061 Spinal stenosis, lumbar region without neurogenic claudication; M54.16 Radiculopathy, lumbar region; F41.1 Generalized anxiety disorder; M19.90 Unspecified osteoarthritis, unspecified site; M79.7 Fibromyalgia; Z96.659 Presence of unspecified artificial knee joint; F17.210 Nicotine dependence, cigarettes, uncomplicated
CPT/HCPCS: 36415; 80053; 85025; 85610; 85730; 86850; 86900; 86901; 93005; 97161; 97530; 99199; A9270; C1713; J0330; J0690; J1100; J1170; J2250; J2405; J2704; J3010; J3370; J7030; J7120

== ENCOUNTER 2023-01-16 11:50 | Outpatient (CLI) | payer MEDICARE, SELFPAY ==
--- NOTE | ~2023-01-16 | XR_ITS ---
Lumbosacral Spine: AP and lateral views Clinical History: Pain Findings: The normal lordotic curve is maintained. There is posterior fusion hardware from L4 to L5, with bilateral rods and transpedicular screws present, as well as interbody fusion device. There is m oderate degenerative disc change at L2-L3 and L3-L4. The sacroiliac joints are normally outlined. Impression: Posterior fusion changes from L4 to L5, as detailed above. Moderate degenerative change, as above. Reviewed, dictated and finalized at location M. Impression: Posterior fusion changes from L4 to L5, as detailed above. Moderate degenerative change, as above.
== END 2023-01-16 11:51 | disposition home or self-care (01) ==
PROVIDERS: PCP Family Medicine; Visit Provider Neurological Surgery
DX: Z98.1 Arthrodesis status (principal); M51.36 Other intervertebral disc degeneration, lumbar region
CPT/HCPCS: 72100

== ENCOUNTER 2023-02-08 08:37 | Outpatient (CLI) | payer MEDICARE, SELFPAY ==
--- NOTE | ~2023-02-08 | US_ITS ---
Ultrasound of the Abdominal Aorta INDICATION: Abdominal aortic aneurysm COMPARISON: 07/24/2021 TECHNIQUE: Grayscale, color Doppler, and pulsed Doppler images of the aorta and common iliac arteries were obtained. COMPARISON: None. FINDINGS: Maximum vascular dimensions are as follows: Proximal aorta: 2.9 cm Mid aorta: 1.9 cm Distal aorta: 2.3 cm Right common iliac artery: 1.4 cm Left common iliac artery: 1.4 cm No latosha abdominal aortic aneurysm seen. Probable extensive atherosclerotic change of the aorta. IMPRESSION: No latosha abdominal aortic aneurysm. Probable extensive atherosclerotic change. Reviewed, dictated and finalized at location .
== END 2023-02-08 08:38 | disposition home or self-care (01) ==
PROVIDERS: PCP Family Medicine; Visit Provider Internal Medicine Cardiovascular Disease
DX: I71.43 Infrarenal abdominal aortic aneurysm, without rupture (principal); I70.0 Atherosclerosis of aorta
CPT/HCPCS: 76775

== ENCOUNTER 2023-05-22 09:44 | Outpatient (CLI) | payer MEDICARE, SELFPAY ==
--- NOTE | ~2023-05-22 | XR_ITS ---
Lumbosacral Spine: AP and lateral views, with neutral, flexion, extension positioning Clinical History: Arthrodesis COMPARISON: 01/16/2023 Findings: The normal lordotic curve is maintained. Posterior and interbody fusion from L4 to L5 is st able from prior exam. Grade 1 anterolisthesis of L4 on L5 persists measuring 7 mm, unchanged. Mild to moderate degenerative disc narrowing at L2-L3 and L4 is present. The sacroiliac joints are normally outlined. Impression: Stable posterior and interbody fusion at L4-L5. 7 mm anterolisthesis of L4 over L5, similar to prior exam. No definite instability seen on flexion or extension. Reviewed, dictated and finalized at location . Impression: Stable posterior and interbody fusion at L4-L5. 7 mm anterolisthesis of L4 over L5, similar to prior exam. No definite instabil ity seen on flexion or extension.
== END 2023-05-22 09:45 | disposition home or self-care (01) ==
LOC: ANHIMG 09:49
PROVIDERS: PCP Family Medicine; Visit Provider Neurological Surgery
DX: Z98.1 Arthrodesis status (principal)
CPT/HCPCS: 72110

== ENCOUNTER 2023-05-23 12:35 | Outpatient (CLI) | payer MEDICARE, SELFPAY ==
--- NOTE | ~2023-05-23 | XR_ITS ---
AP view of the pelvis and AP and lateral views of the bilateral hips Clinical history: Pain Findings: No acute fracture or dislocation is seen. Osseous alignment is anatomic. There is minimal d egenerative change of the both hip joints.. Lumbar sacral spinal fixation hardware present. Soft tiss ues are unremarkable. Impression: Minimal degenerative change of both hip joints. Lumbosacral spinal fixation hardware. Reviewed, dictated and finalized at location M. Impression: Minimal degenerative change of both hip joints. Lumbosacral spinal fixation hardware.
== END 2023-05-23 12:36 | disposition home or self-care (01) ==
PROVIDERS: PCP Family Medicine; Visit Provider Neurological Surgery
DX: M16.0 Bilateral primary osteoarthritis of hip (principal)
CPT/HCPCS: 73521

== ENCOUNTER 2023-07-03 10:23 | Outpatient (CLI) | payer MEDICARE, SELFPAY ==
--- NOTE | ~2023-07-03 | CT_ITS ---
EXAMINATION: CT lung screening DATE: 07/03/2023 11:17 INDICATION: Lung cancer screening TECHNIQUE: Computed tomography (CT) of the chest was performed without intravenous contrast. The dose -length product was 83.85 mGy-cm. Automated exposure control and iterative reconstruction technique w ere employed. COMPARISON: None FINDINGS: No significant pleural or pericardial effusion. There is atherosclerosis of the aorta. No e vidence for aneurysm. No thoracic lymphadenopathy there is emphysema. No endobronchial lesions. No pn eumothorax. There is a 2 mm right upper lobe nodule. No focal airspace consolidation. Mild thoracic s pondylosis. IMPRESSION: 1. Lung-RADS category 2: Benign appearance or behavior. Continue annual screening with noncontrast lo w-dose chest CT in 12 months. Reviewed, dictated and finalized at location B. IMPRESSION: 1. Lung-RADS category 2: Benign appearance or behavior. Continue annual screeni ng with noncontrast low-dose chest CT in 12 months.
== END 2023-07-03 10:24 | disposition home or self-care (01) ==
PROVIDERS: PCP Family Medicine; Visit Provider Physician Assistant Medical
DX: Z12.2 Encounter for screening for malignant neoplasm of respiratory organs (principal); R91.8 Other nonspecific abnormal finding of lung field; Z87.891 Personal history of nicotine dependence
CPT/HCPCS: 71271

== ENCOUNTER → 2023-07-26 11:39 | Outpatient (CLI) | payer MEDICARE, SELFPAY ==
--- NOTE | ~2023-07-26 | US_ITS ---
Pelvic ultrasound. Clinical History: Pelvic pain Technique: Realtime transvaginal scanning of the pelvis was performed. Color flow Doppler and Doppler spectral analysis were performed. Findings: The uterus is anteverted. The endometrial stripe has a thickness of 2 mm. No focal mass is identified. Neither ovary seen. No adnexal mass seen. There is no evidence of free fluid in the cul de sac. Impression: Unremarkable uterus. Neither ovary seen. Reviewed, dictated and finalized at location M. ER GOODS INSPECTOR TESTER Impression: Unremarkable uterus. Neither ovary seen.
== END ==
PROVIDERS: PCP Nurse Practitioner; Visit Provider Nurse Practitioner
DX: R10.2 Pelvic and perineal pain (principal)
CPT/HCPCS: 76830

== ENCOUNTER → 2023-11-05 14:59 | Outpatient (CLI) | payer MEDICARE, SELFPAY ==
--- NOTE | ~2023-11-05 | MM_ITS ---
EXAMINATION: MM screening [place] BI w ana laura HISTORY: Screening TECHNIQUE: Craniocaudal and mediolateral oblique 3-D tomosynthesis images were obtained and synthetic 2-D images were generated. CAD analysis was submitted and interpreted. COMPARISON: Comparison to multiple prior studies sequentially, with oldest reviewed study dated 06/11. BREAST PARENCHYMAL COMPOSITION: There are scattered areas of fibroglandular density. FINDINGS: There is no evidence of suspicious mass, calcification, or architectural distortion to sugg est malignancy in either breast. There has been no suspicious interval change. IMPRESSION: 1. No mammographic evidence of malignancy. 2. Recommend routine screening mammography in one year. BI-RADS Category 1: Negative Reviewed, dictated and finalized at location A. FORCING STEEL PLACER
== END ==
PROVIDERS: PCP Nurse Practitioner; Visit Provider Nurse Practitioner
DX: Z12.31 Encounter for screening mammogram for malignant neoplasm of breast (principal)
CPT/HCPCS: 77063; 77067

== ENCOUNTER 2023-11-12 12:43 | Outpatient (CLI) | payer MEDICARE, SELFPAY ==
--- NOTE | ~2023-11-12 | XR_ITS ---
Lumbosacral Spine: AP and lateral views Clinical History: Postoperative COMPARISON: 05/22/2023 Findings: Posterior fusion again noted from L4 to L5 along with interbody fusion device at this disc level. There is persistent underlying 11 mm anterolisthesis of L4 over L5. There is 4 mm retrolisthes is of L3 over L4. There is moderate facet arthropathy the upper lumbar spine. There is mild to modera te degenerative disc narrowing at L2-L3. The sacroiliac joints are normally outlined. Impression: Postfusion changes from L4-L5 with underlying 11 mm anterolisthesis of L4 over L5. 4 mm retrolisthesis of L3 over L4. Reviewed, dictated and finalized at location M. ETING CO OP Impression: Postfusion changes from L4-L5 with underlying 11 mm anterolisthesis of L4 over L5. 4 mm retrolisthesis of L3 over L4.
== END 2023-11-12 12:44 | disposition home or self-care (01) ==
PROVIDERS: PCP Nurse Practitioner; Visit Provider Neurological Surgery
DX: M43.16 Spondylolisthesis, lumbar region (principal); M41.86 Other forms of scoliosis, lumbar region; Z98.1 Arthrodesis status
CPT/HCPCS: 72100

== ENCOUNTER 2024-01-29 09:27 | Outpatient (CLI) | payer MEDICARE, SELFPAY ==
--- NOTE | ~2024-01-29 | US_ITS ---
EXAMINATION: US arterial ankle brachial ind DATE: 01/29/2024 10:14 INDICATION: Peripheral vascular disease, unspecified. TECHNIQUE: Segmental pressures and plethysmographic and Doppler waveforms of the brachial and lower e xtremity arteries were obtained. COMPARISON: None. FINDINGS: Right and left brachial artery pressures of 125 mm Hg and 106 mm Hg, respectively, are concordant (no rmal difference <= 30 mmHg). The right ankle-brachial index (EVA) is 1.09 (normal >= 0.9-1.0). The right great toe-brachial index (TBI) is 0.43 (normal >= 0.65). Arterial Doppler waveforms are biphasic at the ankle. The left EVA is 1.02. The left TBI is 0.46. Arterial Doppler waveforms are biphasic at the ankle. IMPRESSION: 1. Decreased TBIs and normal ABIs, consistent with arterial occlusive disease. Note that ABIs may be overestimated if arteries are calcified. Reviewed, dictated and finalized at location A.
== END 2024-01-29 09:28 | disposition home or self-care (01) ==
PROVIDERS: PCP Family Medicine; Visit Provider Physician Assistant Medical
DX: I73.9 Peripheral vascular disease, unspecified (principal)
CPT/HCPCS: 93922

== ENCOUNTER 2024-08-13 14:54 | Outpatient (CLI) | payer MEDICARE, SELFPAY ==
--- NOTE | ~2024-08-13 | CT_ITS ---
EXAMINATION: CT lumbar spine wo con DATE: 08/13/2024 15:24 INDICATION: Arthrodesis status. TECHNIQUE: Computed tomography (CT) of the lumbar spine was performed without intravenous contrast. A utomated exposure control and iterative reconstruction technique were employed. The dose-length produ ct was 684.21 mGy-cm. COMPARISON: Lumbar spine radiographs 08/13/2024 FINDINGS: L5 is a transitional segment. There is 12 degrees levoscoliosis of lumbar spine. There is 3 mm retrolisthesis of L3 on L4 and 6 mm anterolisthesis of L4 on L5. There are changes of anterior an d posterior fusion procedures at L4-L5 with interbody devices and pedicle screws. There is mildly dec reased disc height at L1-L2 and severely decreased disc height at L2-L3 and L3-L4. There are changes of anterior and posterior fusion procedures at L4-L5 and L5-S1 with interbody devices and pedicle scr ews. The following disc levels are specifically discussed: L1-L2: The disc is bulging. There is severe bilateral facet joint osteoarthritis. There is mild bilat eral neural foraminal stenosis. There is mild central canal stenosis. L2-L3: The disc is bulging. There is severe bilateral facet joint osteoarthritis. There is moderate r ight and mild left neural foraminal stenosis. There is mild central canal stenosis. L3-L4: The disc is bulging. There is severe bilateral facet joint osteoarthritis. There is moderate r ight and mild left neural foraminal stenosis. There is mild central canal stenosis. L4-L5: There is no facet joint hypertrophy. There is no neural foraminal stenosis. There is no centra l canal stenosis. There is posterior decompression. L5-S1: The disc does not extend beyond the endplate margin. There is no facet joint hypertrophy. Ther e is no neural foraminal stenosis. There is no central canal stenosis. IMPRESSION: 1. Anterior and posterior fusion procedures at L4-L5. 2. Severe lumbar spondylosis. 3. Lumbar levoscoliosis. Reviewed, dictated and finalized at location A. ENT EDUCATOR
--- NOTE | ~2024-08-13 | XR_ITS ---
3 VIEWS LUMBAR SPINE Ordering provider: Kaycee Shearer MD History: . M51.369 - Other intervertebral disc degeneration, lumbar ... . Comparison: November 12, 2023 FINDINGS: VERTEBRAL BODIES:Postoperative changes at the level of L4-L5. Anterolisthesis seen at the level of L4 -L5. No visible fracture. Degenerative changes of the spine.. DISK SPACES: Disc spacer at the level of L4-L5. Severe narrowing of the disc L2-L3 and L3-L4. SOFT TISSUES: Atherosclerotic changes of the aorta. IMPRESSION: No acute osseous abnormality lumbar spine. Postoperative changes. No change from previous examination. Reviewed, dictated and finalized at location A. D MARKETING DIRECTOR
== END 2024-08-13 14:55 | disposition home or self-care (01) ==
PROVIDERS: PCP Family Medicine; Visit Provider Neurological Surgery
DX: M51.369 Other intervertebral disc degeneration, lumbar region without mention of lumbar back pain or lower extremity pain (principal); Z98.1 Arthrodesis status
CPT/HCPCS: 72110; 72131

== ENCOUNTER 2024-10-22 09:41 | Outpatient (CLI) | payer MEDICARE, SELFPAY ==
--- NOTE | ~2024-10-22 | MR_ITS ---
MRI of the lumbar spine Clinical History: Spondylosis Technique: Axial T2-weighted images, and sagittal T1-weighted, T2-weighted, and T2 fat-sat images wer e acquired. COMPARISON: 06/08/2022 Findings: Status post interval posterior fusion from L4 to L5, with bilateral rods and transpedicular screws present. There is posterior decompression at L4-L5. Underlying 8 mm anterolisthesis of L4 ove r L5 is similar to prior exam. No suspicious bone marrow signal abnormality seen. At L1-L2, there is mild degenerative disc change. There is minimal disc bulge with moderate facet art hropathy. No central canal stenosis or neural foraminal narrowing. At L2-L3, there is moderate to advanced degenerative disc narrowing. There is diffuse disc bulge with moderate to advanced facet arthropathy. No latosha central canal stenosis. There is moderate right mathew ral foraminal narrowing, and minimal left neural foraminal narrowing. At L3-L4, there is moderate degenerative disc narrowing. There is mild disc bulge with severe facet a rthropathy bilaterally. No central canal stenosis. There is severe right neural foraminal narrowing. Left neural foramen preserved. At L4-L5, there is moderate degenerative disc narrowing. No disc bulge or herniation evident. No josefina k spinal canal stenosis. Probable mild bilateral neural foraminal narrowing. At L5-S1, there is no disc bulge or herniation. No spinal canal stenosis or neural foraminal narrowin g evident. Paravertebral soft tissues are unremarkable. Impression: Status post interval posterior fusion and posterior decompression from L4 to L5, as detailed above. U nderlying 8 mm anterolisthesis of L4 over L5 persists. Moderate multilevel degenerative spondylitic changes, as above. Reviewed, dictated and finalized at location M. CUTTER Impression: Status post interval posterior fusion and posterior decompression from L4 to L5 , as detailed above. Underlying 8 mm anterolisthesis of L4 over L5 persists. Moderate multilevel degenerative spondylitic changes, as above.
== END 2024-10-22 09:42 | disposition home or self-care (01) ==
PROVIDERS: PCP Family Medicine; Visit Provider Neurological Surgery
DX: M47.816 Spondylosis without myelopathy or radiculopathy, lumbar region (principal)
CPT/HCPCS: 72148

== ENCOUNTER 2025-01-27 12:20 | Outpatient (CLI) | payer MEDICARE, SELFPAY ==
--- NOTE | ~2025-01-27 | MR_ITS ---
MRI of the lumbar spine Clinical History: Radiculopathy Technique: Axial T2-weighted images, and sagittal T1-weighted, T2-weighted, and STIR images were acqu ired. COMPARISON: 10/22/2024 Findings: Posterior fusion from L4 to L5 is again present, with bilateral rods and transpedicular scr ews, as well as this fusion cage present. Underlying anterolisthesis of L4 over L5 is essentially unc hanged. Stable minimal grade 1 retrolisthesis of L2 over L3, and of L3 over L4. No suspicious bone ma rrow signal abnormality seen. At L1-L2, there is moderate facet arthropathy. No disc bulge or herniation. No definite neural forami nal narrowing or canal stenosis. At L2-L3, there is moderate to advanced degenerative disc narrowing. There is diffuse disc bulge with moderate to advanced facet arthropathy. There is mild to moderate canal stenosis/thecal sac compress ion with bilateral lateral recess stenosis. There is moderate to advanced right neural foraminal narr owing, and moderate left neural foraminal narrowing. At L3-L4, there is advanced degenerative disc narrowing with severe facet arthropathy. There is mild disc bulge. No central canal stenosis. There is severe right neural foraminal narrowing and mild to m oderate left neural foraminal narrowing. At L4-L5, there is moderate to advanced degenerative disc narrowing. There is posterior decompression , and no evidence of canal stenosis. There is probable moderate to advanced bilateral neural foramina l narrowing. At L5-S1, there is no disc bulge or herniation. There is mild facet arthropathy. No central canal leighton nosis or neural foraminal narrowing. Paravertebral soft tissues are unremarkable aside from expected postoperative changes. Impression: Severe degenerative spondylosis at L2-L3, as detailed above. Additional multilevel neural foraminal narrowing, especially at L3-L4 and L4-L5, as detailed above. Posterior fusion from L4 through L5, unchanged. Stable listheses in the lumbar spine, as detailed above. Reviewed, dictated and finalized at location M. Impression: Severe degenerative spondylosis at L2-L3, as detailed above. Additional multilevel neural foraminal narrowing, especially at L3-L4 and L4-L5 , as detailed above. Posterior fusion from L4 through L5, unchanged. Stable listheses in the lumbar spine, as detailed above.
--- NOTE | ~2025-01-27 | MR_ITS ---
MRI of the thoracic spine Clinical History: Radiculopathy Technique: Axial T2-weighted and gradient images, and sagittal T1-weighted, T2-weighted, and STIR rosales ges were acquired. Findings: There is no fracture or subluxation of the thoracic spine. Vertebral bodies maintain normal height and alignment. No bone marrow signal abnormality seen. No significant disc bulge or herniation seen at any thoracic level. No spinal canal stenosis or cord compression seen. Probable bilateral neural foraminal narrowing at T9-T10. Neural foramina throughout the thoracic spine appear relatively well-preserved otherwise. No abnormal signal seen in the spinal cord. Paravertebral soft tissues are unremarkable. Impression: Probable bilateral neural foraminal narrowing at T9-T10. Reviewed, dictated and finalized at [facility]. Impression: Probable bilateral neural foraminal narrowing at T9-T10.
== END 2025-01-27 12:21 | disposition home or self-care (01) ==
LOC: GOSHIMG 12:20
PROVIDERS: PCP Family Medicine; Visit Provider Nurse Practitioner Family
DX: M47.26 Other spondylosis with radiculopathy, lumbar region (principal)
CPT/HCPCS: 72146; 72148

== ENCOUNTER 2025-03-24 13:45 | Outpatient (CLI) | payer MEDICARE, SELFPAY ==
--- NOTE | ~2025-03-24 | MM_ITS ---
EXAMINATION: MM screening [facility] BI w ana laura HISTORY: Screening TECHNIQUE: Craniocaudal and mediolateral oblique 3-D tomosynthesis images were obtained and synthetic 2-D images were generated. CAD analysis was submitted and interpreted. COMPARISON: Comparison to multiple prior studies sequentially, with oldest reviewed study dated 04/2019. BREAST PARENCHYMAL COMPOSITION: Not Dense: The breasts are almost entirely fatty. FINDINGS: There is no evidence of suspicious mass, calcification, or architectural distortion to sugg est malignancy in either breast. There has been no suspicious interval change. IMPRESSION: 1. No mammographic evidence of malignancy. 2. Recommend routine screening mammography in one year. BI-RADS Category 1: Negative Reviewed, dictated and finalized at location B.
== END 2025-03-24 13:46 | disposition home or self-care (01) ==
PROVIDERS: PCP Family Medicine; Visit Provider Nurse Practitioner
DX: Z12.31 Encounter for screening mammogram for malignant neoplasm of breast (principal)
CPT/HCPCS: 77063; 77067

== ENCOUNTER 2025-04-07 13:05 | Outpatient (CLI) | payer MEDICARE, SELFPAY ==
--- NOTE | ~2025-04-07 | XR_ITS ---
Lumbosacral Spine: AP and lateral views Clinical History: Spondylosis COMPARISON: 08/13/2024 Findings: No acute fracture or subluxation seen. Osseous alignment is stable from prior exam. Stable grade 1 retrolisthesis of L2 over L3. Stable posterior and interbody fusion from L4 to L5 with underl mira anterolisthesis at this level. There is moderate facet arthropathy at the upper lumbar spine. Th ere is moderate degenerative disc narrowing at L2-L3 at L3-L4. The sacroiliac joints are normally out lined. Interval placement of aortic stent graft. Impression: Stable degenerative spondylosis. Stable osseous alignment. Stable postoperative change at L4-L5. Reviewed, dictated and finalized at [facility]. Impression: Stable degenerative spondylosis. Stable osseous alignment. Stable postoperative change at L4-L5.
== END 2025-04-07 13:06 | disposition home or self-care (01) ==
LOC: GOSHIMG 13:06
PROVIDERS: PCP Family Medicine; Visit Provider Neurological Surgery
DX: M47.816 Spondylosis without myelopathy or radiculopathy, lumbar region (principal); M96.1 Postlaminectomy syndrome, not elsewhere classified
CPT/HCPCS: 72110

== ENCOUNTER 2025-08-25 14:18 | Outpatient (CLI) | payer OTHER, SELFPAY ==
--- NOTE | ~2025-08-25 | US_ITS ---
EXAMINATION: US transvaginal, 08/25/2025 14:20 SWITCH HOUSE OPERATOR HISTORY: Post menopausal bleeding Comparison: None Technique: Lo-scale and color Doppler images were obtained. Findings: Uterus: Uterus anteverted 3.7 x 1.8 x 2.9 cm. . Endometrium 1 mm with nonspecific endometrial fluid. Right Ovary:Right ovary not identified. Left Ovary: Left ovary 1.8 x 1 x 1.3 cm, no adnexal mass, normal flow. Free Fluid: None Impression: No etiology to explain abnormal bleeding Reviewed, dictated and finalized at location P. CH HOUSE OPERATOR Impression: No etiology to explain abnormal bleeding
== END 2025-08-25 14:19 | disposition home or self-care (01) ==
LOC: MICIMG 14:19
DX: N95.0 Postmenopausal bleeding (principal)
CPT/HCPCS: 76830